=== PATIENT | male | born 1975 | race Caucasian/White ===

== ENCOUNTER 2021-09-24 11:53 | Emergency (ER) | payer SELFPAY ==
[~2021-09-24] VITALS: Ht 165.1 cm; Wt 78.4 kg
[2021-09-24 13:20] LABS: RSV AMPLIFICATION NEGATIVE (NEGATIVE)
[2021-09-24] MEDS ORDERED: ONDA4TAB6 PO (16:00)
[2021-09-24] MEDS ORDERED: ONDANSETRON 4 MG ORAL DISINTEGRATING TAB PO ONE (16:00)
[2021-09-24 16:17] VITALS: BP 115/95
== END 2021-09-24 16:19 | disposition home or self-care (01) ==
LOC: M ED 11:53
DX: R07.1 Chest pain on breathing (principal)